=== PATIENT | female | born 1980 | race Two or more races ===

== ENCOUNTER 2021-01-23 05:17 | Inpatient (IN) | payer BC, OTHER ==
[~2021-01-23] VITALS: Ht 172.7 cm; Wt 149.0 kg
[2021-01-23] MEDS ORDERED: SODIUM CHLORIDE 0.9% 1,000 ML IV ONE ×2 (07:30)
[2021-01-23 07:44] LABS: Basophils # (auto) 0.1 10 ^3/uL (0-0.2); Basophils % (auto) 0.3 % (0.0-2.0); Eosinophils # (auto) 0 10 ^3/uL (0-0.8); Eosinophils % (auto) 0.1 % (0.0-7.0); Hematocrit 52.6 % (36.0-46.0); Lymphocytes # (auto) 1.3 10 ^3/uL (0.4-5.4); Lymphocytes % (auto) 7.4 % (10.0-50.0); Mean Corpuscular Hemoglobin 29.1 pg (28.0-32.0); Mean Corpuscular Hgb Conc. 32.3 g/dL (32.0-36.0); Mean Corpuscular Volume 90.1 fL (80.0-100.0); Monocytes # (auto) 0.7 10 ^3/uL (0-1.3); Neutrophils # (auto) 15.9 10 ^3/uL (1.6-8.6); Neutrophils % (auto) 88.2 % (37.0-80.0); Red Blood Cells 5.84 10^6/uL (4.0-5.20); Red Cell Distribution Width 13.7 % (11.8-14.3); White Blood Cell 18.1 10^3/uL (4.4-10.8)
[2021-01-23 08:02] LABS: Potassium 3.9 mmol/L (3.5-5.1)
[2021-01-23 08:09] LABS: Albumin 4.1 g/dL (3.4-5.0); Bilirubin, Total 0.7 mg/dL (0.2-1.0); Calcium 9.5 mg/dL (8.5-10.1); Total Protein 8.1 g/dL (6.4-8.2)
[2021-01-23 08:50] LABS: Urine Bacteria NONE SEEN /hpf (None Seen); Urine Blood 2+ /uL (Negative); Urine Mucus FEW (None Seen); Urine Specific Gravity 1.033 (1.001-1.035); Urine WBC 7 /hpf (0 - 5)
[2021-01-23] MEDS ORDERED: cefTRIAXone 1GM/50ML D5W 50 ML IV ONE (09:15)
[2021-01-23] MEDS ORDERED: FUROSEMIDE 20 MG/2 ML VIAL IV ONE (09:15)
[2021-01-23] MEDS ORDERED: TAMSULOSIN HYDROCHLORIDE 0.4 MG CAP PO ONE (09:15)
[2021-01-23] MEDS ORDERED: NITROGLYCERIN 0.4 MG SL TAB SL PRN ×2 (10:15→13:00)
[2021-01-23] MEDS ORDERED: MORPHINE SULFATE INJECTION 2 MG/ML SYRG IV PRN ×3 (10:15→13:00)
[2021-01-23] MEDS ORDERED: LACTATED RINGER'S 1,000 ML IV ONE (12:15)
[2021-01-23] MEDS ORDERED: KETOROLAC TROMETH 30 MG/ML 1ML VIAL IV PRN (12:15)
[2021-01-23] MEDS ORDERED: FAMOTIDINE (10MG/ML) 2ML VL IV ONE (12:15)
[2021-01-23] MEDS ORDERED: ONDANSETRON HCL 4 MG/2 ML VIAL IV PRN (13:00)
[2021-01-23] MEDS ORDERED: ACETAMINOPHEN 325 MG TAB PO PRN (13:00)
[2021-01-23] MEDS ORDERED: HYDROcodone-ACET 5/325MG TAB PO PRN (13:00)
[2021-01-23] MEDS ORDERED: DOCUSATE SOD 100 MG CAP PO PRN (13:00)
[2021-01-23] MEDS ORDERED: ALUM & MAG HYDROX-SIMETH LIQ(MAALOX) 30 ML PO PRN (13:00)
[2021-01-23] MEDS ORDERED: LORazepam 0.5 MG TAB PO PRN (13:00)
[2021-01-23 13:36] LABS: Cholesterol 226 mg/dL (< 200); HDL Cholesterol 62 mg/dL (40-59); LDL Cholesterol 143 mg/dL (< 100); Triglycerides 100 mg/dL (< 150)
[2021-01-23 13:40] LABS: Alcohol, Urine < 3.0 mg/dL (0-10); Amphetamine Screen, Urine NEGATIVE (NEGATIVE); Barbiturate Scree,Urine NEGATIVE (NEGATIVE); Benzodiazephine Screen, Urine NEGATIVE (NEGATIVE); Cannabinoid Screen, Urine POSITIVE (NEGATIVE); Cocaine Screen, Urine NEGATIVE (NEGATIVE); Phencyclidine Screen, Urine NEGATIVE (NEGATIVE)
[2021-01-23 13:46] LABS: Opiate Scree,Urine NEGATIVE (NEGATIVE)
[2021-01-23] MEDS: SODIUM CHLORIDE 0.9% 1,000 ML IV SCH ×2 (14:00→21:56)
[2021-01-23 16:46] LABS: Magnesium 2.3 mg/dL (1.6-2.6); Phosphorus 3.6 mg/dL (2.5-4.90)
[2021-01-23] MEDS: TAMSULOSIN HYDROCHLORIDE 0.4 MG CAP PO SCH (18:00)
[2021-01-23] MEDS: FAMOTIDINE (10MG/ML) 2ML VL IV SCH (21:55)
[2021-01-23 22:00] VITALS: BP 149/86
[2021-01-24 04:52] VITALS: BP 142/73
[2021-01-24 06:08] LABS: Basophils # (auto) 0.1 10 ^3/uL (0-0.2); Basophils % (auto) 0.5 % (0.0-2.0); Eosinophils # (auto) 0.1 10 ^3/uL (0-0.8); Eosinophils % (auto) 0.7 % (0.0-7.0); Hematocrit 42.1 % (36.0-46.0); Lymphocytes # (auto) 2.6 10 ^3/uL (0.4-5.4); Lymphocytes % (auto) 24.9 % (10.0-50.0); Mean Corpuscular Hemoglobin 29.8 pg (28.0-32.0); Mean Corpuscular Hgb Conc. 33.3 g/dL (32.0-36.0); Mean Corpuscular Volume 89.7 fL (80.0-100.0); Monocytes # (auto) 0.7 10 ^3/uL (0-1.3); Monocytes % (auto) 6.7 % (0.0-12.0); Neutrophils # (auto) 7.1 10 ^3/uL (1.6-8.6); Neutrophils % (auto) 67.2 % (37.0-80.0); Nucleated Red Blood Cells % 0.1 %; Red Cell Distribution Width 13.9 % (11.8-14.3); White Blood Cell 10.5 10^3/uL (4.4-10.8)
[2021-01-24 06:11] LABS: INR 1.03 (0.9-1.15); Partial Thromboplastin Time 26.5 sec (23.6-33.0)
[2021-01-24 06:22] LABS: BUN/Creatinine Ratio 18.9; Bilirubin, Total 1.2 mg/dL (0.2-1.0); Magnesium 2.3 mg/dL (1.6-2.6); Total Protein 5.5 g/dL (6.4-8.2); Uric Acid 4.6 mg/dL (2.6-6.0)
[2021-01-24 08:30] VITALS: BP 99/53
[2021-01-24] MEDS: ENOXAPARIN SOD 40 MG/0.4 ML SYRINGE SC SCH (08:43)
[2021-01-24] MEDS: cefTRIAXone 1GM/50ML D5W 50 ML IV SCH (08:43)
[2021-01-24] MEDS: FAMOTIDINE (10MG/ML) 2ML VL IV SCH ×2 (08:44→21:20)
[2021-01-24] MEDS ORDERED: MANNITOL 20% SOLN 100 gm/500ml 100 ML IV ONE (12:45)
[2021-01-24] MEDS: SODIUM CHLORIDE 0.9% 1,000 ML IV SCH ×3 (12:46→19:40)
[2021-01-24 13:00] VITALS: BP 111/54
[2021-01-24 16:54] VITALS: BP 128/51
[2021-01-24] MEDS: TAMSULOSIN HYDROCHLORIDE 0.4 MG CAP PO SCH (18:10)
[2021-01-24 22:00] VITALS: BP 118/53
[2021-01-25] MEDS: SODIUM CHLORIDE 0.9% 1,000 ML IV SCH ×2 (02:20→11:44)
[2021-01-25 05:00] VITALS: BP 113/53
[2021-01-25 09:00] VITALS: BP 129/71
[2021-01-25] MEDS: cefTRIAXone 1GM/50ML D5W 50 ML IV SCH (09:49)
[2021-01-25] MEDS: ENOXAPARIN SOD 40 MG/0.4 ML SYRINGE SC SCH (09:49)
[2021-01-25] MEDS: FAMOTIDINE (10MG/ML) 2ML VL IV SCH (09:49)
[2021-01-25 13:00] VITALS: BP 117/67
[2021-01-25 17:00] VITALS: BP 125/83
[2021-01-25] MEDS ORDERED: CHOL20007 PO (17:14)
[2021-01-25] MEDS ORDERED: TAM04C PO (17:14)
[2021-01-25] MEDS: TAMSULOSIN HYDROCHLORIDE 0.4 MG CAP PO SCH (17:54)
[2021-01-25 18:25] VITALS: BP 125/83
== END 2021-01-25 19:38 | disposition home or self-care (01) | DRG 683 ==
LOC: ER 05:17 → EDBD 05:17 → TELE 10:04 → TELE-WESTW 20:08
PROVIDERS: ADMIT Hospitalist; ATTEND Internal Medicine
DX: N17.0 Acute kidney failure with tubular necrosis (principal); Z68.42 Body mass index [BMI] 45.0-49.9, adult; R65.10 Systemic inflammatory response syndrome (SIRS) of non-infectious origin without acute organ dysfunction; N20.2 Calculus of kidney with calculus of ureter; N13.39 Other hydronephrosis; Z20.822 Contact with and (suspected) exposure to COVID-19; E55.9 Vitamin D deficiency, unspecified; E66.01 Morbid (severe) obesity due to excess calories; E78.5 Hyperlipidemia, unspecified; E88.81 Metabolic syndrome and other insulin resistance; D72.829 Elevated white blood cell count, unspecified; R53.83 Other fatigue; Z90.49 Acquired absence of other specified parts of digestive tract
CPT/HCPCS: 36415; 74176; 80053; 80061; 80307; 81001; 82306; 83036; 83735; 83880; 84100; 84443; 84484; 84550; 85025; 85379; 85610; 85730; 87040; 87086; 87426; 93005; 96361; 96365; G0378; J0696; J3490